=== PATIENT | male | born 1960 | race Hispanic/Latino ===

== ENCOUNTER 2021-11-06 12:24 | Inpatient (IN) | payer OTHER ==
[2021-11-06] VITALS (7 sets, daily range): BP systolic 112–137; BP diastolic 70–76
[~2021-11-06] VITALS: Ht 170.2 cm; Wt 62.8 kg
[2021-11-06 13:52] LABS: BASOPHILS % 0.1 % (0.0-1.0); HEMATOCRIT 30.6 % (38.2-49.6); HEMOGLOBIN 10.4 g/dL (14.0-18.0); LYMPHOCYTES # (AUTO) 0.3 (1.0-3.2); LYMPHOCYTES % 2.8 % (18.0-39.1); MEAN CORPUSCULAR HEMOGLOBIN 32.1 pg (28-32); MEAN CORPUSCULAR VOLUME 94.4 fL (81-99); MONOCYTES # (AUTO) 0.4 (0.2-0.8); MONOCYTES % 3.7 % (4.4-11.3); NEUTROPHILS # (AUTO) 10.9 (2.1-6.9); NEUTROPHILS % 92.9 % (38.7-80.0); PLATELET COUNT 127 x10e3/uL (140-360); RED BLOOD COUNT 3.24 x10e6/uL (4.3-5.7); RED CELL DISTRIBUTION WIDTH 14.1 % (11.7-14.4)
[2021-11-06 14:15] LABS: ABG HCO3 18 mmol/L (22-26); ABG PCO2 29 mmHg (35-45); ABG PH 7.39 (7.35-7.45); ABG PO2 71 mmHg (80-105); ABG TCO2 19
[2021-11-06 14:23] LABS: ALBUMIN 3.4 g/dL (3.5-5.0); ALBUMIN/GLOBULIN RATIO 0.8 (0.8-2.0); ANION GAP 22.6 mmol/L (8-16); CALCIUM 8.2 mg/dL (8.4-10.2); CREATININE, SERUM 8.77 mg/dL (0.72-1.25); POTASSIUM 5.6 mmol/L (3.5-5.1)
[2021-11-06] MEDS ORDERED: FUROSEMIDE INJ 10 MG/ML 4 ML VIAL IV ONE (15:15)
[2021-11-06] MEDS ORDERED: ONDANSETRON HCL INJ 2MG/ML 2ML 2 MG/ML VIAL IV PRN (15:30)
[2021-11-06] MEDS ORDERED: SODIUM CHLORIDE FLUSH 10 ML SYR INJ PRN (15:30)
[2021-11-06] MEDS ORDERED: CALCIUM GLUC 1 G/50 ML NACL 50 ML IV ONE (15:30)
[2021-11-06] MEDS ORDERED: SOD POLYSTYRENE SULFONATE SUSP 15 GM/60 ML BTL PO ONE (15:30)
[2021-11-06] MEDS ORDERED: ASPIRIN 81 MG CHEW TAB PO ONE (15:30)
[2021-11-06 16:07] LABS: AMPHETAMINES SCREEN,URINE POSITIVE (NEGATIVE); BENZODIAZEPINES SCREEN,URINE NEGATIVE (NEGATIVE); PHENCYCLIDINE SCREEN,URINE NEGATIVE (NEGATIVE)
[2021-11-06 16:08] LABS: COLOR,URINE YELLOW (YELLOW); KETONES,URINE NEGATIVE (NEGATIVE); LEUKOCYTE ESTERASE ,URINE SMALL (NEGATIVE); NITRITE,URINE NEGATIVE (NEGATIVE); PROTEIN,URINE DIPSTICK >=300 (NEGATIVE); URINE UROBILINOGEN 0.2 mg/dL (0.2 - 1)
[2021-11-06 16:09] LABS: CLARITY,URINE SL CLOUDY (CLEAR)
[2021-11-06 16:13] LABS: BACTERIA,URINE MODERATE /HPF
[2021-11-06] MEDS ORDERED: ZOLPIDEM TARTRATE 5 MG TAB PO PRN (17:00)
[2021-11-06] MEDS ORDERED: ACETAMINOPHEN 325 MG TAB PO PRN (17:00)
[2021-11-06] MEDS ORDERED: DEXTROSE 50% SYRINGE 50 ML IV PRN (17:00)
[2021-11-06] MEDS ORDERED: ALLOPURINOL100 MG PO (18:27)
[2021-11-06] MEDS ORDERED: FINASTERIDE5 MG PO (18:30)
[2021-11-06] MEDS ORDERED: PROCARDIA XL30 MG (18:30)
[2021-11-06] MEDS ORDERED: FUROSEMIDE40 MG PO (18:31)
[2021-11-06] MEDS ORDERED: SODIUM BICARBO650 MG PO (18:32)
[2021-11-06] MEDS ORDERED: AMLODIPINE BESY10 MG PO (18:33)
[2021-11-06] MEDS ORDERED: GLYBURIDE5 MG PO (18:33)
[2021-11-06] MEDS ORDERED: AURYXIA210 MG PO (18:34)
[2021-11-06] MEDS ORDERED: HEPARIN SOD (PORCINE) 1000 UNIT/ML SDV IV PRN (19:45)
[2021-11-06] MEDS ORDERED: SODIUM CHLORIDE 0.9% 1000ML 2,000 ML IV PRN (19:45)
[2021-11-06] MEDS ORDERED: MANNITOL 25% 12.5GM/50 ML VIAL IV PRN (19:45)
[2021-11-06] MEDS: FUROSEMIDE INJ 10 MG/ML 4 ML VIAL IV SCH (20:55)
[2021-11-06] MEDS: INSULIN REGULAR, HUMAN 100 UNIT/1 ML SQ SCH (21:00)
[2021-11-06 22:57] LABS: CREATINE KINASE MB 43.9 ng/mL (0-5.0)
[2021-11-07] VITALS (29 sets, daily range): BP systolic 88–148; BP diastolic 65–96
[2021-11-07] MEDS: INSULIN REGULAR, HUMAN 100 UNIT/1 ML SQ SCH ×4 (07:30→21:00)
[2021-11-07 08:14] LABS: BASOPHILS % 0.1 % (0.0-1.0); EOSINOPHILS % 0.1 % (0.0-6.0); HEMATOCRIT 28.8 % (38.2-49.6); HEMOGLOBIN 9.6 g/dL (14.0-18.0); LYMPHOCYTES # (AUTO) 0.6 (1.0-3.2); LYMPHOCYTES % 6.7 % (18.0-39.1); MEAN CORPUSCULAR HEMOGLOBIN 31.5 pg (28-32); MEAN CORPUSCULAR HGB CONC 33.3 g/dL (31-35); MEAN CORPUSCULAR VOLUME 94.4 fL (81-99); MONOCYTES # (AUTO) 0.5 (0.2-0.8); MONOCYTES % 5.1 % (4.4-11.3); NEUTROPHILS % 87.6 % (38.7-80.0); PLATELET COUNT 133 x10e3/uL (140-360); RED BLOOD COUNT 3.05 x10e6/uL (4.3-5.7)
[2021-11-07 09:00] LABS: INR 1.26; PROTHROMBIN TIME 16.9 seconds (11.9-14.5)
[2021-11-07 09:01] LABS: PARTIAL THROMBOPLASTIN TIME 34.4 seconds (23.8-35.5)
[2021-11-07] MEDS: FINASTERIDE 5 MG TAB PO SCH (09:01)
[2021-11-07] MEDS: ATORVASTATIN 40 MG TAB PO SCH (09:02)
[2021-11-07] MEDS: ASPIRIN 81 MG ENTERIC COATED PO SCH (09:02)
[2021-11-07 09:09] LABS: ANION GAP 18.2 mmol/L (8-16); CALCIUM 8.2 mg/dL (8.4-10.2); CREATININE, SERUM 7.09 mg/dL (0.72-1.25); MAGNESIUM 2.4 MG/DL (1.3-2.1); PHOSPHORUS 5.4 MG/DL (2.3-4.7); POTASSIUM 4.2 mmol/L (3.5-5.1)
[2021-11-07] MEDS: FUROSEMIDE INJ 10 MG/ML 4 ML VIAL IV SCH (09:16)
[2021-11-07 09:30] LABS: CREATINE KINASE MB 19.6 ng/mL (0-5.0)
[2021-11-07 09:49] LABS: FERRITIN 993.9 ng/mL (21.81-274.66)
[2021-11-07 10:34] LABS: CLARITY,URINE CLEAR (CLEAR); COLOR,URINE YELLOW (YELLOW); KETONES,URINE NEGATIVE (NEGATIVE); LEUKOCYTE ESTERASE ,URINE MODERATE (NEGATIVE); NITRITE,URINE NEGATIVE (NEGATIVE); PROTEIN,URINE DIPSTICK 2+ (NEGATIVE); URINE UROBILINOGEN 0.2 mg/dL (0.2 - 1)
[2021-11-07 10:47] LABS: BACTERIA,URINE FEW /HPF; EPITHELIAL CELLS,URINE FEW /LPF; RBC,URINE >50 /HPF (0-5); WBC,URINE (MAN) >50 /HPF (0-5)
[2021-11-07 16:32] LABS: CREATINE KINASE MB 9.5 ng/mL (0-5.0)
[2021-11-07] MEDS: SEVELAMER CARBONATE 800 MG TAB PO SCH (17:00)
[2021-11-08] VITALS (19 sets, daily range): BP systolic 113–147; BP diastolic 50–95
[2021-11-08 07:08] LABS: BASOPHILS % 0.2 % (0.0-1.0); EOSINOPHILS % 0.3 % (0.0-6.0); HEMATOCRIT 31.9 % (38.2-49.6); HEMOGLOBIN 10.7 g/dL (14.0-18.0); LYMPHOCYTES # (AUTO) 0.7 (1.0-3.2); LYMPHOCYTES % 7.4 % (18.0-39.1); MEAN CORPUSCULAR HEMOGLOBIN 31.4 pg (28-32); MEAN CORPUSCULAR HGB CONC 33.5 g/dL (31-35); MEAN CORPUSCULAR VOLUME 93.5 fL (81-99); MONOCYTES # (AUTO) 0.4 (0.2-0.8); MONOCYTES % 4.6 % (4.4-11.3); NEUTROPHILS # (AUTO) 7.6 (2.1-6.9); NEUTROPHILS % 86.9 % (38.7-80.0); PLATELET COUNT 152 x10e3/uL (140-360); RED BLOOD COUNT 3.41 x10e6/uL (4.3-5.7); RED CELL DISTRIBUTION WIDTH 13.6 % (11.7-14.4)
[2021-11-08] MEDS: INSULIN REGULAR, HUMAN 100 UNIT/1 ML SQ SCH ×4 (07:30→20:49)
[2021-11-08 07:31] LABS: ALBUMIN 3.1 g/dL (3.5-5.0); ALBUMIN/GLOBULIN RATIO 0.7 (0.8-2.0); ANION GAP 19.9 mmol/L (8-16); CALCIUM 9.1 mg/dL (8.4-10.2); CREATININE, SERUM 5.2 mg/dL (0.72-1.25); POTASSIUM 3.9 mmol/L (3.5-5.1)
[2021-11-08 07:44] LABS: INR 1.19; PROTHROMBIN TIME 16.1 seconds (11.9-14.5)
[2021-11-08 07:45] LABS: PARTIAL THROMBOPLASTIN TIME 35.9 seconds (23.8-35.5)
[2021-11-08] MEDS: SEVELAMER CARBONATE 800 MG TAB PO SCH ×3 (08:00→17:00)
[2021-11-08] MEDS: ASPIRIN 81 MG ENTERIC COATED PO SCH (09:12)
[2021-11-08] MEDS: FINASTERIDE 5 MG TAB PO SCH (09:13)
[2021-11-08] MEDS: ATORVASTATIN 40 MG TAB PO SCH (09:13)
[2021-11-08] MEDS: CARVEDILOL 3.125 MG TAB PO SCH ×2 (09:14→18:51)
[2021-11-08] MEDS: FUROSEMIDE 40 MG TAB PO SCH (09:14)
[2021-11-08] MEDS ORDERED: DEXTROSE 50% SYRINGE 50 ML IV ONE ×2 (09:45→19:15)
[2021-11-08] MEDS ORDERED: LIDOCAINE HCL 2% LOCAL 20 ML VIAL ONE ×2 (16:18→16:29)
[2021-11-08] MEDS ORDERED: VERAPAMIL HCL 2.5 MG/ML 2 ML VIAL ONE (16:18)
[2021-11-08] MEDS ORDERED: IOPAMIDOL 370 MG/ML 100 ML INFUS..BTL INJ ONE (16:19)
[2021-11-08] MEDS ORDERED: NITROGLYCERIN/D5W 200 MCG/ML 250 ML ONE (16:19)
[2021-11-08] MEDS ORDERED: SODIUM CHLORIDE 0.9% 1000ML 1,000 ML ONE ×2 (16:19→17:15)
[2021-11-08] MEDS ORDERED: HEPARIN SOD/SOD CHLORIDE 2,000 ML ONE (16:19)
[2021-11-08] MEDS ORDERED: HEPARIN SOD (PORCINE) 1000 UNIT/ML 30ML ONE (16:29)
[2021-11-08] MEDS ORDERED: MIDAZOLAM HCL 2 MG/2 ML VIAL ONE (16:53)
[2021-11-08] MEDS ORDERED: FENTANYL CITRATE/PF 100MCG/2 ML INJ ONE (16:54)
[2021-11-08] MEDS ORDERED: CLOPIDOGREL BISULFATE 75 MG TAB ONE (18:03)
[2021-11-08] MEDS ORDERED: ASPIRIN 325 MG TAB ONE (18:03)
[2021-11-09] VITALS (32 sets, daily range): BP systolic 88–168; BP diastolic 50–97
[2021-11-09 05:38] LABS: BASOPHILS % 0.4 % (0.0-1.0); EOSINOPHILS # (AUTO) 0.1 (0.0-0.4); EOSINOPHILS % 1.5 % (0.0-6.0); HEMATOCRIT 31.1 % (38.2-49.6); HEMOGLOBIN 10.2 g/dL (14.0-18.0); LYMPHOCYTES # (AUTO) 0.3 (1.0-3.2); LYMPHOCYTES % 6.7 % (18.0-39.1); MEAN CORPUSCULAR HEMOGLOBIN 31.6 pg (28-32); MEAN CORPUSCULAR HGB CONC 32.8 g/dL (31-35); MEAN CORPUSCULAR VOLUME 96.3 fL (81-99); MONOCYTES # (AUTO) 0.3 (0.2-0.8); MONOCYTES % 6.3 % (4.4-11.3); NEUTROPHILS # (AUTO) 4.1 (2.1-6.9); NEUTROPHILS % 84.7 % (38.7-80.0); PLATELET COUNT 155 x10e3/uL (140-360); RED BLOOD COUNT 3.23 x10e6/uL (4.3-5.7); RED CELL DISTRIBUTION WIDTH 13.4 % (11.7-14.4)
[2021-11-09 05:50] LABS: ALBUMIN 2.6 g/dL (3.5-5.0); ALBUMIN/GLOBULIN RATIO 0.6 (0.8-2.0); CALCIUM 8.2 mg/dL (8.4-10.2); CREATININE, SERUM 6.05 mg/dL (0.72-1.25); MAGNESIUM 2.6 MG/DL (1.3-2.1)
[2021-11-09] MEDS: INSULIN REGULAR, HUMAN 100 UNIT/1 ML SQ SCH ×4 (07:30→20:31)
[2021-11-09] MEDS: SEVELAMER CARBONATE 800 MG TAB PO SCH ×3 (08:36→19:48)
[2021-11-09] MEDS ORDERED: ASPIRIN 325 MG TAB PO SCH (09:00)
[2021-11-09] MEDS: FUROSEMIDE 40 MG TAB PO SCH (09:29)
[2021-11-09] MEDS: ATORVASTATIN 40 MG TAB PO SCH (09:29)
[2021-11-09] MEDS: CLOPIDOGREL BISULFATE 75 MG TAB PO SCH (09:31)
[2021-11-09] MEDS: CARVEDILOL 3.125 MG TAB PO SCH ×2 (09:32→19:48)
[2021-11-09] MEDS: FINASTERIDE 5 MG TAB PO SCH (09:33)
[2021-11-10] VITALS (15 sets, daily range): BP systolic 117–162; BP diastolic 64–82
[2021-11-10 05:43] LABS: ALBUMIN 2.9 g/dL (3.5-5.0); ALBUMIN/GLOBULIN RATIO 0.6 (0.8-2.0); ANION GAP 19.1 mmol/L (8-16); CALCIUM 8.3 mg/dL (8.4-10.2); CREATININE, SERUM 4.71 mg/dL (0.72-1.25); POTASSIUM 4.1 mmol/L (3.5-5.1)
[2021-11-10] MEDS: INSULIN REGULAR, HUMAN 100 UNIT/1 ML SQ SCH ×4 (07:30→21:00)
[2021-11-10] MEDS: SEVELAMER CARBONATE 800 MG TAB PO SCH ×3 (07:42→16:34)
[2021-11-10] MEDS: ASPIRIN 81 MG CHEW TAB PO SCH (10:27)
[2021-11-10] MEDS: CLOPIDOGREL BISULFATE 75 MG TAB PO SCH (10:27)
[2021-11-10] MEDS: ATORVASTATIN 40 MG TAB PO SCH (10:27)
[2021-11-10] MEDS: FINASTERIDE 5 MG TAB PO SCH (10:27)
[2021-11-10] MEDS: FUROSEMIDE 40 MG TAB PO SCH (10:28)
[2021-11-10] MEDS: CARVEDILOL 3.125 MG TAB PO SCH ×2 (10:29→16:34)
[2021-11-11] VITALS (9 sets, daily range): BP systolic 121–152; BP diastolic 68–83
[2021-11-11] MEDS: INSULIN REGULAR, HUMAN 100 UNIT/1 ML SQ SCH ×4 (07:30→21:00)
[2021-11-11] MEDS: SEVELAMER CARBONATE 800 MG TAB PO SCH ×3 (08:00→19:11)
[2021-11-11] MEDS: ASPIRIN 81 MG CHEW TAB PO SCH (09:00)
[2021-11-11] MEDS: CLOPIDOGREL BISULFATE 75 MG TAB PO SCH (09:00)
[2021-11-11 13:18] LABS: ANION GAP 21.3 mmol/L (8-16); CALCIUM 7.9 mg/dL (8.4-10.2); CREATININE, SERUM 6.61 mg/dL (0.72-1.25); POTASSIUM 4.3 mmol/L (3.5-5.1)
[2021-11-11] MEDS: ATORVASTATIN 40 MG TAB PO SCH (19:09)
[2021-11-11] MEDS: FINASTERIDE 5 MG TAB PO SCH (19:09)
[2021-11-11] MEDS: FUROSEMIDE 40 MG TAB PO SCH (19:11)
[2021-11-11] MEDS: CARVEDILOL 12.5 MG TAB PO SCH (19:16)
[2021-11-11] MEDS ORDERED: SODIUM CHLORIDE 0.9% 250ML 250 ML ONE (22:06)
[2021-11-12] VITALS (7 sets, daily range): BP systolic 100–153; BP diastolic 64–79
[2021-11-12 06:19] LABS: BASOPHILS % 0.4 % (0.0-1.0); EOSINOPHILS # (AUTO) 0.1 (0.0-0.4); EOSINOPHILS % 1.3 % (0.0-6.0); HEMATOCRIT 26.7 % (38.2-49.6); LYMPHOCYTES # (AUTO) 0.8 (1.0-3.2); LYMPHOCYTES % 16.9 % (18.0-39.1); MEAN CORPUSCULAR HEMOGLOBIN 31.3 pg (28-32); MEAN CORPUSCULAR HGB CONC 33.7 g/dL (31-35); MEAN CORPUSCULAR VOLUME 92.7 fL (81-99); MONOCYTES # (AUTO) 0.6 (0.2-0.8); MONOCYTES % 11.5 % (4.4-11.3); NEUTROPHILS # (AUTO) 3.3 (2.1-6.9); NEUTROPHILS % 69.5 % (38.7-80.0); PLATELET COUNT 153 x10e3/uL (140-360); RED BLOOD COUNT 2.88 x10e6/uL (4.3-5.7); RED CELL DISTRIBUTION WIDTH 13.2 % (11.7-14.4)
[2021-11-12 06:44] LABS: ALBUMIN 2.8 g/dL (3.5-5.0); ALBUMIN/GLOBULIN RATIO 0.7 (0.8-2.0); ANION GAP 21.2 mmol/L (8-16); CALCIUM 7.3 mg/dL (8.4-10.2); CREATININE, SERUM 7.37 mg/dL (0.72-1.25); MAGNESIUM 2.4 MG/DL (1.3-2.1); POTASSIUM 4.2 mmol/L (3.5-5.1)
[2021-11-12] MEDS ORDERED: ONDANSETRON HCL 4 MG ORAL DISINTEGRATING TAB PO PRN (07:15)
[2021-11-12] MEDS: INSULIN REGULAR, HUMAN 100 UNIT/1 ML SQ SCH ×4 (07:30→21:00)
[2021-11-12] MEDS: SEVELAMER CARBONATE 800 MG TAB PO SCH ×3 (08:00→16:40)
[2021-11-12] MEDS: CARVEDILOL 12.5 MG TAB PO SCH ×2 (09:00→16:40)
[2021-11-12] MEDS ORDERED: SODIUM CHLORIDE 0.9% 500ML 1,000 ML ONE (13:56)
[2021-11-12] MEDS ORDERED: LIDOCAINE HCL 2% LOCAL 20 ML VIAL ONE (13:56)
[2021-11-12] MEDS ORDERED: FENTANYL CITRATE/PF 100MCG/2 ML INJ ONE (14:06)
[2021-11-12] MEDS ORDERED: MIDAZOLAM HCL 2 MG/2 ML VIAL ONE (14:06)
[2021-11-12] MEDS ORDERED: HEPARIN SOD (PORCINE) 1000 UNIT/ML SDV ONE (14:10)
[2021-11-12] MEDS: AZITHROMYCIN 250 MG TAB PO SCH (16:40)
[2021-11-12] MEDS: ATORVASTATIN 40 MG TAB PO SCH (16:41)
[2021-11-12] MEDS: FUROSEMIDE 40 MG TAB PO SCH (16:41)
[2021-11-12] MEDS: FINASTERIDE 5 MG TAB PO SCH (16:41)
[2021-11-12] MEDS: CLOPIDOGREL BISULFATE 75 MG TAB PO SCH (16:41)
[2021-11-12] MEDS: ASPIRIN 81 MG CHEW TAB PO SCH (16:41)
[2021-11-13] MEDS: INSULIN REGULAR, HUMAN 100 UNIT/1 ML SQ SCH ×4 (07:30→20:56)
[2021-11-13 07:34] VITALS: BP 143/70
[2021-11-13 07:43] VITALS: BP 143/70
[2021-11-13] MEDS: SEVELAMER CARBONATE 800 MG TAB PO SCH ×3 (08:23→17:30)
[2021-11-13] MEDS: CLOPIDOGREL BISULFATE 75 MG TAB PO SCH (09:13)
[2021-11-13] MEDS: FINASTERIDE 5 MG TAB PO SCH (09:14)
[2021-11-13] MEDS: ATORVASTATIN 40 MG TAB PO SCH (09:14)
[2021-11-13] MEDS: ASPIRIN 81 MG CHEW TAB PO SCH (09:14)
[2021-11-13] MEDS: CARVEDILOL 12.5 MG TAB PO SCH ×2 (09:15→17:31)
[2021-11-13] MEDS: FUROSEMIDE 40 MG TAB PO SCH (09:15)
[2021-11-13 11:47] VITALS: BP 108/57
[2021-11-13 15:42] VITALS: BP 105/64
[2021-11-13] MEDS: AZITHROMYCIN 250 MG TAB PO SCH (17:31)
[2021-11-13 20:00] VITALS: BP 144/77
[2021-11-13 21:00] VITALS: BP 144/77
[2021-11-14] VITALS (8 sets, daily range): BP systolic 109–128; BP diastolic 61–83
[2021-11-14 06:05] LABS: ANION GAP 20.9 mmol/L (8-16); CALCIUM 7.5 mg/dL (8.4-10.2); CREATININE, SERUM 6.9 mg/dL (0.72-1.25); POTASSIUM 3.9 mmol/L (3.5-5.1)
[2021-11-14] MEDS: INSULIN REGULAR, HUMAN 100 UNIT/1 ML SQ SCH ×4 (07:30→21:00)
[2021-11-14] MEDS: SEVELAMER CARBONATE 800 MG TAB PO SCH ×3 (08:00→16:20)
[2021-11-14] MEDS: CARVEDILOL 12.5 MG TAB PO SCH ×2 (09:00→16:21)
[2021-11-14] MEDS ORDERED: SODIUM CHLORIDE 0.9% 250ML 500 ML IV PRN (10:15)
[2021-11-14] MEDS ORDERED: ALBUMIN 25% 12.5GM 0.25 GM/ML BTL IV PRN (10:15)
[2021-11-14] MEDS ORDERED: HEPARIN SOD (PORCINE) 1000 UNIT/ML SDV IV PRN (10:15)
[2021-11-14] MEDS ORDERED: SODIUM CHLORIDE 0.9% 1000ML 2,000 ML IV PRN (10:15)
[2021-11-14] MEDS: ASPIRIN 81 MG CHEW TAB PO SCH (11:57)
[2021-11-14] MEDS: CLOPIDOGREL BISULFATE 75 MG TAB PO SCH (11:57)
[2021-11-14] MEDS: FINASTERIDE 5 MG TAB PO SCH (11:57)
[2021-11-14] MEDS: FUROSEMIDE 40 MG TAB PO SCH (11:58)
[2021-11-14] MEDS: ATORVASTATIN 40 MG TAB PO SCH (11:58)
[2021-11-14] MEDS: AZITHROMYCIN 250 MG TAB PO SCH ×2 (16:21→17:00)
[2021-11-15] VITALS: BP 111/66
[2021-11-15 05:00] LABS: BASOPHILS % 0.2 % (0.0-1.0); EOSINOPHILS % 0.8 % (0.0-6.0); HEMATOCRIT 26.8 % (38.2-49.6); HEMOGLOBIN 8.8 g/dL (14.0-18.0); LYMPHOCYTES # (AUTO) 1.1 (1.0-3.2); MEAN CORPUSCULAR HEMOGLOBIN 30.8 pg (28-32); MEAN CORPUSCULAR HGB CONC 32.8 g/dL (31-35); MEAN CORPUSCULAR VOLUME 93.7 fL (81-99); MONOCYTES # (AUTO) 0.6 (0.2-0.8); MONOCYTES % 12.1 % (4.4-11.3); NEUTROPHILS # (AUTO) 3.3 (2.1-6.9); NEUTROPHILS % 64.9 % (38.7-80.0); PLATELET COUNT 196 x10e3/uL (140-360); RED BLOOD COUNT 2.86 x10e6/uL (4.3-5.7); RED CELL DISTRIBUTION WIDTH 13.2 % (11.7-14.4)
[2021-11-15 05:22] LABS: ALBUMIN 2.9 g/dL (3.5-5.0); ALBUMIN/GLOBULIN RATIO 0.7 (0.8-2.0); ANION GAP 17.3 mmol/L (8-16); CREATININE, SERUM 4.94 mg/dL (0.72-1.25); MAGNESIUM 2.2 MG/DL (1.3-2.1); POTASSIUM 4.3 mmol/L (3.5-5.1)
[2021-11-15 05:52] VITALS: BP 111/72
[2021-11-15] MEDS: INSULIN REGULAR, HUMAN 100 UNIT/1 ML SQ SCH ×3 (07:30→14:47)
[2021-11-15 07:51] VITALS: BP 131/73
[2021-11-15] MEDS: CLOPIDOGREL BISULFATE 75 MG TAB PO SCH (08:33)
[2021-11-15] MEDS: FUROSEMIDE 40 MG TAB PO SCH (08:33)
[2021-11-15] MEDS: ATORVASTATIN 40 MG TAB PO SCH (08:34)
[2021-11-15] MEDS: SEVELAMER CARBONATE 800 MG TAB PO SCH ×2 (08:34→11:39)
[2021-11-15] MEDS: ASPIRIN 81 MG CHEW TAB PO SCH (08:34)
[2021-11-15] MEDS: CARVEDILOL 12.5 MG TAB PO SCH (08:34)
[2021-11-15] MEDS: FINASTERIDE 5 MG TAB PO SCH (08:35)
[2021-11-15 09:07] VITALS: BP 131/73
[2021-11-15 11:19] VITALS: BP 118/71
[2021-11-15 15:45] VITALS: BP 105/64
[2021-11-15] MEDS ORDERED: PLAVIX75 MG PO (16:22)
[2021-11-15] MEDS ORDERED: FUROSEMIDE40 MG PO (16:22)
[2021-11-15] MEDS ORDERED: ASPIRIN CHEW81 MG PO (16:22)
[2021-11-15] MEDS ORDERED: COREG12.5 MG PO (16:22)
[2021-11-15] MEDS ORDERED: LIPITOR20 MG PO (16:22)
[2021-11-15] MEDS ORDERED: RENVELA800 MG PO (16:22)
[2021-11-16] MEDS ORDERED: SODIUM FERRIC GLUCONATE COMPLX 125 MG in SODIUM CHLORIDE 0.9% 100 ML IV SCH (09:00)
== END 2021-11-15 18:10 | disposition home or self-care (01) | DRG 246 ==
LOC: ER 12:45 → ERHOLD 15:04 → ICU 17:03 → MED/SURG 11-11 20:38
PROVIDERS: ADMIT Internal Medicine; ATTEND Internal Medicine
PROC: 027035Z Dilation of Coronary Artery, One Artery with Two Drug-eluting Intraluminal Devices, Percutaneous Approach (ICD-10-PCS; 2021-11-08)
PROC: 02C03ZZ Extirpation of Matter from Coronary Artery, One Artery, Percutaneous Approach (ICD-10-PCS; 2021-11-08)
PROC: 4A023N7 Measurement of Cardiac Sampling and Pressure, Left Heart, Percutaneous Approach (ICD-10-PCS; 2021-11-08)
PROC: B2111ZZ Fluoroscopy of Multiple Coronary Arteries using Low Osmolar Contrast (ICD-10-PCS; 2021-11-08)
PROC: B2151ZZ Fluoroscopy of Left Heart using Low Osmolar Contrast (ICD-10-PCS; 2021-11-08)
PROC: 0JH63XZ Insertion of Tunneled Vascular Access Device into Chest Subcutaneous Tissue and Fascia, Percutaneous Approach (ICD-10-PCS; principal; 2021-11-12)
PROC: 02H633Z Insertion of Infusion Device into Right Atrium, Percutaneous Approach (ICD-10-PCS; 2021-11-12)
PROC: B5181ZA Fluoroscopy of Superior Vena Cava using Low Osmolar Contrast, Guidance (ICD-10-PCS; 2021-11-12)
DX: I13.2 Hypertensive heart and chronic kidney disease with heart failure and with stage 5 chronic kidney disease, or end stage renal disease (principal); I21.4 Non-ST elevation (NSTEMI) myocardial infarction; I50.23 Acute on chronic systolic (congestive) heart failure; J96.01 Acute respiratory failure with hypoxia; N18.6 End stage renal disease; N17.9 Acute kidney failure, unspecified; E87.2 Acidosis; E87.5 Hyperkalemia; Z20.822 Contact with and (suspected) exposure to COVID-19; D89.89 Other specified disorders involving the immune mechanism, not elsewhere classified; D63.1 Anemia in chronic kidney disease; E11.22 Type 2 diabetes mellitus with diabetic chronic kidney disease; N31.9 Neuromuscular dysfunction of bladder, unspecified; N39.498 Other specified urinary incontinence; Z93.6 Other artificial openings of urinary tract status; Z79.82 Long term (current) use of aspirin; Z79.4 Long term (current) use of insulin; I25.10 Atherosclerotic heart disease of native coronary artery without angina pectoris
CPT/HCPCS: 36415; 36558; 36600; 71045; 74470; 76770; 76937; 77001; 80048; 80053; 80307; 81001; 82550; 82553; 82607; 82728; 82746; 82805; 82948; 83036; 83540; 83605; 83735; 83880; 84100; 84466; 84484; 85025; 85045; 85610; 85730; 86704; 86705; 86706; 87040; 87340; 92920; 92928; 93005; 93306; 93458; 94799; 96372; 97139; 99152; 99153; 99251; 99284; C1724; C1725; C1769; C1874; C1887; J0456; J0696; J1644; J1817; J1940; J2001; J2150; J2185; J2250; J2916; J3010; J7030; J7040; J7050; J7799; Q9967

== ENCOUNTER 2024-03-11 12:43 | Emergency (ER) | payer MEDICARE, OTHER ==
[~2024-03-11] VITALS: Ht 170.2 cm; Wt 62.6 kg
[~2024-03-11 12:43] MED LIST: ALLOPURINOL100 MG PO; AMLODIPINE BESY10 MG PO; ASPIRIN CHEW81 MG PO; AURYXIA210 MG PO; COREG12.5 MG PO; FINASTERIDE5 MG PO; FUROSEMIDE40 MG PO; GLYBURIDE5 MG PO; LIPITOR20 MG PO; PLAVIX75 MG PO; PROCARDIA XL30 MG; RENVELA800 MG PO; SODIUM BICARBO650 MG PO
[2024-03-11 13:12] VITALS: TEMP 98.5
[2024-03-11 16:13] LABS: CLARITY,URINE TURBID (CLEAR); COLOR,URINE RED (YELLOW)
[2024-03-11 16:30] LABS: BILIRUBIN,URINE NEGATIVE (NEGATIVE); GLUCOSE, URINE NEGATIVE (NEGATIVE); KETONES,URINE NEGATIVE (NEGATIVE); LEUKOCYTE ESTERASE ,URINE NEGATIVE (NEGATIVE); NITRITE,URINE NEGATIVE (NEGATIVE); PH,URINE 7 (5 - 7); PROTEIN,URINE DIPSTICK >=300 (NEGATIVE); URINE UROBILINOGEN 0.2 mg/dL (0.2 - 1)
[2024-03-11 16:32] LABS: BACTERIA,URINE RARE /HPF; RBC,URINE >50 /HPF (0-5); WBC,URINE (MAN) 0-5 /HPF (0-5)
[2024-03-11 16:34] VITALS: PULSE 98; RESP 16; O2SAT 100
[2024-03-11] MEDS ORDERED: CEFDINIR300 MG PO (16:54)
== END 2024-03-11 17:40 | disposition home or self-care (01) ==
LOC: ER 13:38
DX: R31.9 Hematuria, unspecified (principal); R10.30 Lower abdominal pain, unspecified; I12.9 Hypertensive chronic kidney disease with stage 1 through stage 4 chronic kidney disease, or unspecified chronic kidney disease; E11.22 Type 2 diabetes mellitus with diabetic chronic kidney disease; N18.9 Chronic kidney disease, unspecified; Z99.2 Dependence on renal dialysis
CPT/HCPCS: 51700; 81001; 87086; 99283